=== PATIENT | female | born 1985 | race Caucasian/White ===

== ENCOUNTER 2021-05-22 19:38 | Emergency (ER) | payer MEDICAID ==
[~2021-05-22] VITALS: Ht 154.9 cm; Wt 77.1 kg
--- NOTE | 2021-05-22 20:10 | NUR ---
BIBS FOR C/O GENERALIZED ABD PAIN X 2 DAYS. REPORTED FEELING ABD FULLNESS THOUGH SHE IS . HX OF TUBAL LIGATION. PT AxO x4 BREATHING EVEN AND UNLABORED CHANGED INTO A GOWN AND PLACED ON MONITOR AND ALL V/S STABLE.
--- NOTE | 2021-05-22 20:20 | NUR ---
[employer] COORDINATOR AT PT'S BEDSIDE
[2021-05-22 20:33] LABS: BASOPHILS % (AUTO) 0.4 % (0.0-2.0); EOSINOPHILS % (AUTO) 1.8 % (0.0-6.0); HEMATOCRIT 33 % (33-45); HEMOGLOBIN 10.5 g/dL (11.5-14.8); LYMPHOCYTES # (AUTO) 3.2 K/uL (0.8-4.8); LYMPHOCYTES % (AUTO) 39.6 % (20.0-44.0); MEAN CORPUSCULAR HGB CONC 31 g/dl (31.0-36.0); MEAN CORPUSCULAR VOLUME 74 fL (82-100); MONOCYTES # (AUTO) 0.6 K/uL (0.1-1.30); NEUTROPHILS # (AUTO) 4.2 K/uL (1.8-8.9); NEUTROPHILS % (AUTO) 51.2 % (43.0-81.0); PLATELET COUNT (AUTO) 367 K/uL (150-450); RED BLOOD CELL COUNT(AUTO) 4.48 MIL/uL (4.0-5.2); WHITE BLOOD COUNT (AUTO) 8.1 K/uL (4.3-11.0)
[2021-05-22 20:42] LABS: BILIRUBIN,URINE NEGATIVE (NEGATIVE); COLOR,URINE YELLOW (YELLOW); LEUKOCYTE ESTERASE ,URINE NEGATIVE (NEGATIVE); NITRITE, URINE NEGATIVE (NEGATIVE); PROTEIN,URINE NEGATIVE (NEGATIVE); UGLUCOSE 500 MG/DL mg/dL (NEGATIVE); UROBILINOGEN,URINE 0.2 EU/dL (0.2)
[2021-05-22 20:49] LABS: ALBUMIN 3.5 g/dL (3.4-5.0); BILIRUBIN,TOTAL 0.1 mg/dL (0.2-1.0); CALCIUM, SERUM 8.4 mg/dL (8.5-10.1); CREATININE 0.7 mg/dL (0.6-1.3); POTASSIUM 3.7 mmol/L (3.5-5.1); TOTAL PROTEIN, SERUM 7.3 g/dL (6.4-8.2)
--- NOTE | 2021-05-22 20:58 | NUR ---
US TECH AT PT'S BEDSIDE
[2021-05-22 21:06] LABS: EOSINOPHILS % (MANUAL) 3 % (0-4); LYMPHOCYTES % (MANUAL) 40 % (16-48); MONOCYTES % (MANUAL) 9 % (0-11.0); NEUTROPHILS % (MANUAL) 48 (42-76)
--- NOTE | 2021-05-22 21:14 | NUR ---
ADAM PAGED FOR CT READING
--- NOTE | 2021-05-22 21:45 | NUR ---
DR NEWELL AT BEDSIDE
--- NOTE | 2021-05-22 21:52 | NUR ---
Patient discharged to home in stable condition. Written and verbal after care instructions given. Patient verbalizes understanding of instruction.Patient ambulatory with a steady gait
[2021-05-22 21:53] VITALS: BP 132/74
== END 2021-05-22 21:53 | disposition home or self-care (01) ==
LOC: ER 20:01
DX: R10.30 Lower abdominal pain, unspecified (principal); R14.0 Abdominal distension (gaseous); Z98.890 Other specified postprocedural states
CPT/HCPCS: 36415; 80048-TC; 80076-TC; 84703-TC; 85025-TC

== ENCOUNTER 2023-06-18 00:58 | Emergency (ER) | payer MEDICAID, OTHER ==
[~2023-06-18] VITALS: Ht 162.6 cm; Wt 81.6 kg
[2023-06-18 01:14] VITALS: BP 147/88; TEMP 98.6; O2SAT 98
[2023-06-18] MEDS ORDERED: CLIN300C12 PO (01:24)
[2023-06-18] MEDS ORDERED: CEFTRIAXONE 1 G VIAL ONE (01:31)
[2023-06-18] MEDS ORDERED: TDAP [DIPH/PERTUSSIS/TET] 0.5 ML VIAL IM ONE (01:31)
[2023-06-18] MEDS: CEFTRIAXONE 1 G VIAL IM ONE (01:40)
[2023-06-18] MEDS: TDAP [DIPH/PERTUSSIS/TET] 0.5 ML VIAL IM ONE (01:41)
== END 2023-06-18 02:09 | disposition home or self-care (01) ==
LOC: ER 01:03
DX: S90.561A Insect bite (nonvenomous), right ankle, initial encounter (principal); Z60.2 Problems related to living alone; W57.XXXA Bitten or stung by nonvenomous insect and other nonvenomous arthropods, initial encounter; Y93.89 Activity, other specified; Y92.89 Other specified places as the place of occurrence of the external cause; Y99.8 Other external cause status
CPT/HCPCS: 99284; 96372; 90471; 90715; J0696

== ENCOUNTER 2023-07-29 00:49 | Emergency (ER) | payer OTHER ==
[~2023-07-29] VITALS: Ht 152.4 cm; Wt 74.8 kg
[~2023-07-29 00:49] MED LIST: CLIN300C12 PO
[2023-07-29 02:48] VITALS: TEMP 98.4
[2023-07-29 03:02] VITALS: BP 120/71; O2SAT 99
[2023-07-29 03:17] LABS: APPEARANCE,URINE SLIGHTLY CLOUDY (CLEAR); BILIRUBIN,URINE NEGATIVE (NEGATIVE); BLOOD, URINE TRACE-INTA Ery/uL (NEGATIVE); COLOR,URINE YELLOW (YELLOW); KETONES,URINE NEGATIVE (NEGATIVE); LEUKOCYTE ESTERASE ,URINE NEGATIVE (NEGATIVE); NITRITE, URINE NEGATIVE (NEGATIVE); PROTEIN,URINE 1+ mg/dl (NEGATIVE); UGLUCOSE TRACE mg/dL (NEGATIVE)
[2023-07-29 03:18] LABS: PREGNANCY TEST URINE QUAL NEGATIVE (NEGATIVE)
[2023-07-29 03:21] LABS: ADD URINE CULTURE YES; BACTERIA,URINE Few /HPF (None Seen); CALCIUM OXALATE CRYSTALS,UR Rare /HPF (None Seen)
[2023-07-29 03:22] LABS: YEAST,URINE Rare /HPF (None Seen)
[2023-07-29] MEDS ORDERED: PHENAZOPYRIDINE HCL 200 MG TABLET ONE (03:27)
[2023-07-29] MEDS: PHENAZOPYRIDINE HCL 200 MG TABLET PO ONE (03:28)
[2023-07-29] MEDS ORDERED: NITROFURANTOIN/MONOHYDRATE MACROCRYSTALS 100 MG CAPSULE PO ONE (03:30)
[2023-07-29] MEDS ORDERED: NITR100C6 PO (03:30)
[2023-07-29] MEDS ORDERED: PHEN-705 PO (03:30)
== END 2023-07-29 03:39 | disposition home or self-care (01) ==
LOC: ER 00:58
DX: N39.0 Urinary tract infection, site not specified (principal); Z60.2 Problems related to living alone
CPT/HCPCS: 81001; 84703-TC; 87086-TC